=== PATIENT | female | born 1980 | race Caucasian/White ===

== ENCOUNTER 2023-01-09 12:37 | Emergency (ER) | payer OTHER, SELFPAY ==
[2023-01-09 12:49] VITALS: BP 128/79; PULSE 82; RESP 16; TEMP 36.9; O2SAT 100
--- NOTE | 2023-01-09 12:59 | ED.URI ---
HPI - URI/Sore Throat General Chief Complaint: Upper Respiratory Infection Stated Complaint: Cough/Sore Throat Time Seen by Provider: 01/09/23 12:59 Source: patient Mode of arrival: ambulatory Limitations: no limitations History of Present Illness HPI Narrative: 42-year-old female presents with complaint nasal congestion, sinus pressure, ear pressure, postnasal drainage for 4 days. Reports sore throat for 2 days. Also reports productive cough. Denies chest pain and shortness of breath. Patient vapes. Reports history of bronchitis. Afebrile. Not taking any [id number] medications to treat her symptoms. Denies nausea vomiting diarrhea. All systems reviewed and negative except as noted above. Related Data Home Medications Medication Instructions Recorded Confirmed levothyroxine 175 mcg tablet mcg 01/09/23 simvastatin 40 mg tablet mg 01/09/23 Allergies Allergy/AdvReac Type Severity Reaction Status Date / Time No Known Allergies Allergy Verified 01/09/23 12:56 Review of Systems Review of Systems: CONSTITUTIONAL: Denies fever, chills, or sweats. EYES: Denies visual changes, redness, or discharge. ENT: Reports rhinorrhea, congestion, sore throat, sinus and ear pressure. CARDIOVASCULAR: Denies chest pain, palpitations, or edema. RESPIRATORY: Reports cough. Denies dyspnea. GASTROINTESTINAL: Denies abdominal pain, nausea, vomiting, or diarrhea. GENITOURINARY: Denies dysuria or hematuria. SKIN: Denies rash or itching. MUSCULOSKELETAL: Denies back pain, joint pain, or myalgia. NEUROLOGIC: Denies headache, numbness, or weakness. PSYCHIATRIC: Denies anxiety or depression. All other systems reviewed are negative, except as documented in HPI. PMFSH Comments At time of signature, agree with nursing past medical, surgical, social and family history. There is no relevant family history pertinent to the presenting complaint. Exam Narrative: GENERAL: This is a well-nourished, well-developed patient, in no apparent distress. HEAD: normocephalic, atraumatic. EYES: PERRL. Sclera clear/white. Vision is grossly intact. EARS: External ears normal, auditory canals clear and without drainage, fluid bilateral TMs without erythema or perforation. Hearing grossly intact. NOSE: External nose normal with Moderate congestion, clear nasal drainage, erythema and swelling to bilateral nares. THROAT: Mucous membranes moist, posterior pharynx clear. NECK: Neck supple, non-tender without lymphadenopathy, masses or thyromegaly. CARDIOVASCULAR: Regular rate and rhythm without murmurs, gallops, or rubs. RESPIRATORY: Clear to auscultation. Breath sounds equal bilaterally. No wheezes, rales, or rhonchi. All wet, productive cough noted. SKIN: warm, Dry, intact with no suspicious lesions or rash, good texture and turgor. NEURO: awake, alert, and oriented to person, place and time. There were no obvious focal neurologic abnormalities. EXTREMITIES: No joint tenderness, effusion, or edema noted. Course Course Level of Care: Express Care Visit Vital Signs Vital signs: Vital Signs Temperature 36.9 C 01/09/23 12:49 Pulse Rate 82 01/09/23 12:49 Respiratory Rate 16 01/09/23 12:49 Blood Pressure 128/79 01/09/23 12:49 Pulse Oximetry 100 01/09/23 12:49 Oxygen Delivery Room Air 01/09/23 12:49 Temperature 36.9 C 01/09/23 12:49 Pulse Rate 82 01/09/23 12:49 Respiratory Rate 16 01/09/23 12:49 Blood Pressure 128/79 01/09/23 12:49 Pulse Oximetry 100 01/09/23 12:49 Oxygen Delivery Room Air 01/09/23 12:49 Reviewed MDM - URI/Sore Throat MDM Narrative Medical decision making narrative: Patient is aware of diagnosis, understands and agrees to treatment plan. Anticipatory guidance given. Patient agrees to follow-up as directed and is aware of reasons to seek care at the emergency department. Portions of this record may have been created with voice recognition software [employer]
== END 2023-01-09 13:15 | disposition home or self-care (01) ==
PROVIDERS: Emergency Provider Nurse Practitioner Family
DX: J01.90 Acute sinusitis, unspecified (principal); R05.9 Cough, unspecified; H65.03 Acute serous otitis media, bilateral; E78.00 Pure hypercholesterolemia, unspecified; E03.9 Hypothyroidism, unspecified
CPT/HCPCS: 87081; 87880; 99203; G0463

== ENCOUNTER 2023-03-10 10:34 | Emergency (ER) | payer OTHER, SELFPAY ==
--- NOTE | ~2023-03-10 | XR_ITS ---
EXAMINATION: XR ankle LT min 3V DATE: 03/10/2023 11:07 INDICATION: Lateral left ankle pain and swelling post fall TECHNIQUE: Anteroposterior, oblique, mortise, and lateral views of the left ankle were obtained. COMPARISON: None. FINDINGS: Nondisplaced oblique fracture through the distal fibula with a fracture plane exiting medially at the level of the tibiotalar joint. Alignment remains essentially anatomic. No other fracture identified . Specifically the medial and posterior malleoli as well as the talar dome are intact. Ankle mortis e remains congruent. Soft tissue swelling overlying the lateral malleolus. No ankle joint effusion. IMPRESSION: 1. Nondisplaced oblique fracture of the distal left fibula consistent with a Bautista type B injury madai mignon. Reviewed, dictated and finalized at location A. IMPRESSION: 1. Nondisplaced oblique fracture of the distal left fibula consistent with a We fredi type B injury pattern.
[2023-03-10 10:52] VITALS: BP 115/78; PULSE 88; RESP 18; TEMP 36.7; O2SAT 98
--- NOTE | 2023-03-10 11:56 | PC.NURSE ---
no answer for room at 1157
[2023-03-10 12:45] VITALS: BP 132/64; PULSE 70; RESP 16; TEMP 36.6; O2SAT 97
--- NOTE | 2023-03-10 14:18 | ED.LOWEXIN ---
HPI - Extremity Injury (Lower) General Chief Complaint: Extremity Injury, Lower Stated Complaint: left ankle injury Time Seen by Provider: 03/10/23 13:29 History of Present Illness HPI Narrative: Patient is a 42-year-old female presenting with left ankle pain. Patient states that she was called into work last night. She was leaving she tripped on a curb and twisted her left ankle. States that she has had severe pain since. Denies further injuries or complaints. Related Data Home Medications Medication Instructions Recorded Confirmed levothyroxine 175 mcg tablet mcg 01/09/23 simvastatin 40 mg tablet mg 01/09/23 Allergies Allergy/AdvReac Type Severity Reaction Status Date / Time No Known Allergies Allergy Verified 03/10/23 13:33 Review of Systems Review of Systems: All systems reviewed & are unremarkable except as noted in HPI and below Exam Narrative: GENERAL: Well-appearing and in no acute distress. HEAD: Normocephalic, atraumatic. EYES: PERRLA and EOMI. ENT: Grossly unremarkable NECK: Supple. CHEST: No respiratory distress. HEART: Regular rate and rhythm. ABDOMEN: Nondistended EXTREMITIES: + Left lateral malleolus is swollen and tender with overlying ecchymosis, DP pulses are 2+ bilaterally, no sensory deficits SKIN: Warm, dry, no rash. NEURO: No focal deficits. Alert and oriented x3. PSYCH: Normal mood and affect. Course Vital Signs Vital signs: Vital Signs Temperature 98.1 F 03/10/23 10:52 Pulse Rate 88 03/10/23 10:52 Respiratory Rate 18 03/10/23 10:52 Blood Pressure 115/78 03/10/23 10:52 Pulse Oximetry 98 03/10/23 10:52 Oxygen Delivery Room Air 03/10/23 10:52 Temperature 97.9 F 03/10/23 12:45 Pulse Rate 70 03/10/23 12:45 Respiratory Rate 16 03/10/23 12:45 Blood Pressure 132/64 03/10/23 12:45 Pulse Oximetry 97 03/10/23 12:45 Oxygen Delivery Room Air 03/10/23 10:52 MDM - Extremity Injury (Lower) MDM Narrative Medical decision making narrative: Patient is a 42-year-old female presenting with left ankle pain after twisting it. Vitals stable. Exam remarkable for the above. X-ray shows distal fibular fracture. Patient splinted and advised to be nonweightbearing until she is able to follow-up with orthopedics. Also recommended PCP follow-up. Appropriate return precautions given. Patient voiced understanding and is agreeable with plan. Discharged in stable condition. Differential Diagnosis Differential diagnosis: Likely ankle sprain and strain and ankle fracture Medical Records Attestation: I reviewed the patient's medical records. Imaging Data Radiologist's impression: ITS Impressions Ankle X-Ray 03/10/23 11:11 IMPRESSION: 1. Nondisplaced oblique fracture of the distal left fibula consistent with a Bautista type B injury pattern. Critical Care Time Critical Care Time Critical Care Time: No Discharge Plan Discharge Clinical Impression: Ankle fracture, left Patient Disposition: Home, Self-Care Condition: Stable Instructions: Antibiotic Form, Ankle Fracture (ED) Additional Instructions: X-ray today shows that you broke your left ankle. Please keep the splint on and use crutches to remain nonweightbearing until you follow-up with orthopedic surgery. You may use the prescribed pain medication for severe breakthrough pain. Please also use ibuprofen. Please elevate the foot is much as possible we recommend following up with PCP within 1-3 days. If your symptoms worsen, you develop chest pain, shortness of breath, numbness or weakness, vomiting, fevers >100.4F, or other concerning symptoms arise, please return to the ER. Prescriptions: New hydrocodone-acetaminophen 5-325 mg tablet 1 tablet PO Q8H PRN (Reason: pain) Qty: 10 0RF No Action levothyroxine 175 mcg tablet simvastatin 40 mg tablet prednisone 20 mg tablet See Rx Instructions .Route .COMPLEX Qty: 12 0RF
[2023-03-10] MEDS: HYDROcodone/acetaminophen (*CRX) 5-325 MG TABLET 1 TAB PO (14:31)
[2023-03-10] MEDS: IBUPROFEN 400 MG TABLET 800 MG PO (14:32)
--- NOTE | 2023-04-14 07:34 | PC.NURSE ---
Short leg posterior applied to pts L leg.
== END 2023-03-10 15:39 | disposition home or self-care (01) ==
PROVIDERS: Emergency Provider Emergency Medicine
DX: S82.832A Other fracture of upper and lower end of left fibula, initial encounter for closed fracture (principal); W10.1XXA Fall (on)(from) sidewalk curb, initial encounter
CPT/HCPCS: 29515; 73610; 99283; 99284; A9270